=== PATIENT | male | born 1995 | race Two or more races ===

== ENCOUNTER 2017-10-04 00:12 | Inpatient (IN) | payer OTHER ==
[~2017-10-04] VITALS: Ht 177.8 cm; Wt 75.7 kg
[2017-10-04] VITALS (8 sets, daily range): BP systolic 120–165; BP diastolic 65–100
[2017-10-04] MEDS ORDERED: LORazepam 0.5mg tab ORAL ONE (00:45)
[2017-10-04 01:03] LABS: BASOPHILS % (AUTO) 1.1 % (0.0-2.0); EOSINOPHILS % (AUTO) 5.8 % (0.0-3.0); HEMATOCRIT 47.8 % (42.0-52.0); HEMOGLOBIN 17.2 G/DL (14.2-18.0); LYMPHOCYTES % (AUTO) 38.2 % (20.0-45.0); MEAN CORPUSCULAR VOLUME 89 FL (80-99); MONOCYTES % (AUTO) 8.7 % (1.0-10.0); NEUTROPHILS % (AUTO) 46.2 % (45.0-75.0); PLATELET COUNT 348 K/UL (150-450); RED BLOOD COUNT 5.39 M/UL (4.70-6.10); RED CELL DISTRIBUTION WIDTH 10.2 % (11.6-14.8)
[2017-10-04 01:16] LABS: ANION GAP 5 mmol/L (5-15); BLOOD UREA NITROGEN 16 mg/dL (7-18); CALCIUM 9.3 MG/DL (8.5-10.1); CARBON DIOXIDE 31 MMOL/L (21-32); CHLORIDE 101 MMOL/L (98-107); CREATININE 1.1 MG/DL (0.55-1.30); POTASSIUM 3.5 MMOL/L (3.5-5.1); SODIUM 137 MMOL/L (136-145)
[2017-10-04 01:30] LABS: ALANINE AMINOTRANSFERASE 24 U/L (12-78); ALBUMIN 4.1 G/DL (3.4-5.0); ALBUMIN/GLOBULIN RATIO 1.2 (1.0-2.7); ALKALINE PHOSPHATASE 81 U/L (46-116); ASPARTATE AMINO TRANSFERASE 18 U/L (15-37); BILIRUBIN,TOTAL 0.8 MG/DL (0.2-1.0); CREATINE KINASE 122 U/L (26-308)
--- NOTE | 2017-10-04 02:42 | Emergency Room Report ---
History of Present Illness General Chief Complaint: Dyspnea/Respdistress Source: Patient Present Illness HPI 22YOM with acute onset "weird sensation" in chest described as shortness of breath and "irregular heart beat" that occurred while watching [place] in movie theatre. Symptoms worse lying flat, improved leaning forward Recent URI and sore throat/strep treated with Abx last month Denies recent fever/chills Never had this before. No recent travel Family history of CVA No fam hx of PE Denies ETOH, smoking, drug use Denies history of HTN Very fit, active Allergies: Coded Allergies: No Known Allergies (Unverified , 10/04/17) Patient History Past Medical History: none Past Surgical History: none Pertinent Family History: none Social History: Denies: smoking, alcohol use, drug use Immunizations: UTD Reviewed Nursing Documentation: PMH: Agreed, PSxH: Agreed Review of Systems All Other Systems: negative except mentioned in HPI Physical Exam Vital Signs Date Time Temp Pulse Resp B/P (MAP) Pulse Ox O2 Delivery O2 Flow Rate FiO2 10/04/17 00:14 98.4 94 18 165/100 99 Room Air 98.4 Sp02 EP Interpretation: reviewed, normal General Appearance: normal inspection, well appearing, no apparent distress, alert, GCS 15, non-toxic Head: normocephalic, atraumatic Eyes: bilateral eye PERRL, bilateral eye EOMI ENT: normal ENT inspection, hearing grossly normal, normal pharynx, no angioedema, normal voice, TMs + canals normal, uvula midline, moist mucus membranes Neck: normal inspection, full range of motion, supple, thyroid normal, no meningismus, no bony tend Respiratory: normal inspection, lungs clear, normal breath sounds, no rhonchi, no respiratory distress, no retraction, no accessory muscle use, no wheezing, speaking full sentences Cardiovascular #1: regular rate, rhythm, no edema, no JVD, normal capillary refill, other - No friction rub Gastrointestinal: normal inspection, normal bowel sounds, non tender, soft, no mass, no peritonitis, non-distended, no guarding, no hernia, no pulsatile mass Genitourinary: no CVA tenderness Musculoskeletal: normal inspection, back normal, normal range of motion, no calf tenderness, pelvis stable, Bethany's Sign negative Neurologic: normal inspection, alert, oriented x3, responsive, chauffeur III-XII nml as tested, motor strength/tone normal, cerebellar normal, normal gait, speech normal Psychiatric: normal inspection, judgement/insight normal, mood/affect normal, no suicidal/homicidal ideation, no delusions Skin: normal inspection, normal color, no rash Lymphatic: normal inspection, no adenopathy Medical Decision Making Diagnostic Impression: Primary Impression: Palpitations ER Course VSS, afebrile ECG NSR, +LVH Trop 0 - unlikely ACS, myocarditis/pericarditis D-dimer WNL, unlikely PE. Strong concern for HOCM given patient's young age, athleticism, LVH on ECG No cardiac echo available at night Panel admit to Dr Acuña Endorsed to Dr Fish at 345am for tele admit EKG Diagnostic Results Rate: normal Rhythm: NSR ST Segments: no acute changes ASA given to the pt in ED: No Rhythm Strip Diag. Results EP Interpretation: yes Rate: 65 Rhythm: NSR, no PVC's, no ectopy Last Vital Signs Date Time Temp Pulse Resp B/P (MAP) Pulse Ox O2 Delivery O2 Flow Rate FiO2 10/04/17 01:36 77 18 132/80 98 Room Air 10/04/17 00:30 98.4 98.4 Status: improved Disposition: ADMITTED INPATIENT Condition: Serious Referrals: NOT CHOSEN IPA/,REFERRING (PCP) JULIAN YEE M.D. Oct 04, 2017 02:42
[2017-10-04] MEDS ORDERED: NKM (04:02)
[2017-10-04] MEDS ORDERED: Acetaminophen 650 MG SUPP RECTAL PRN ×2 (05:30)
[2017-10-04] MEDS ORDERED: Zolpidem 5mg tab ORAL PRN (05:30)
[2017-10-04] MEDS ORDERED: Miralax 17gm pkt ORAL PRN (05:30)
[2017-10-04] MEDS ORDERED: Albuterol/Ipratropium 3ml neb HHN PRN (05:30)
[2017-10-04] MEDS: Heparin 5000 units/ml inj SUBQ SCH ×2 (10:04→20:34)
--- NOTE | 2017-10-04 10:19 | History and Physical ---
History of Present Illness General Date patient seen: Oct 04, 2017 Time patient seen: 10:19 Reason for Hospitalization: Dyspnea/Respdistress Present Illness HPI 22y/o male with no sig pmh who presents with SOB and palpitations. Pt states adriana weight sensation in his chest and SOB while watching a movie in a theater. He was never had this before. His symptoms quickly resolved. Pt then awoke in AM w/ palpitations. Denies f/c, n/v, d/c, chest pain, abd pain, leg swelling, orthopnea, PND. Allergies: Coded Allergies: MOLD (Verified Allergy, Mild, 10/04/17) Uncoded Allergies: pollen (Allergy, Intermediate, 10/04/17) Medication History Scheduled No Known Medications* (NKM - No Known Medications*), 0 ., (Reported) Patient History History Provided By: Patient Healthcare decision maker Resuscitation status Full Code Advanced Directive on File No Past Medical/Surgical History Past Medical/Surgical History: (1) No significant past medical history (2) No significant past surgical history Family History Family History: Patient reports no known family medical history. Social History Social History: (1) No significant social history Review of Systems Constitutional: Reports: no symptoms Eye: Reports: no symptoms ENT: Reports: no symptoms Respiratory: Reports: shortness of breath Cardiovascular: Reports: palpitations Gastrointestinal: Reports: no symptoms Genitourinary: Reports: no symptoms Musculoskeletal: Reports: no symptoms Skin: Reports: no symptoms Psychiatric: Reports: no symptoms Neurological: Reports: no symptoms Endocrine: Reports: no symptoms Hematologic/Lymphatic: Reports: no symptoms All Other Systems: negative except mentioned in HPI Physical Exam Last 24 Hour Vital Signs Date Time Temp Pulse Resp B/P (MAP) Pulse Ox O2 Delivery O2 Flow Rate FiO2 10/04/17 08:00 97.7 66 18 120/65 98 Room Air 10/04/17 04:30 97.0 73 22 125/76 99 Room Air 10/04/17 04:30 98.4 73 22 125/76 98 Room Air 98.4 10/04/17 03:45 73 22 125/76 98 Room Air 10/04/17 01:36 77 18 132/80 98 Room Air 10/04/17 00:30 94 18 Room Air 10/04/17 00:30 98.4 94 18 165/100 99 Room Air 98.4 10/04/17 00:14 98.4 94 18 165/100 99 Room Air 98.4 Intake and Output 10/03/17 10/04/17 19:00 07:00 Intake Total 240 ml Balance 240 ml Intake Oral 240 ml # Voids 1 Laboratory Tests Test 10/04/17 00:12 10/04/17 00:50 10/04/17 02:22 Urine Opiates Screen Negative (NEGATIVE) Urine Barbiturates Screen Negative (NEGATIVE) Phencyclidine (PCP) Screen Negative (NEGATIVE) Urine Amphetamines Screen Negative (NEGATIVE) Urine Benzodiazepines Screen Negative (NEGATIVE) Urine Cocaine Screen Negative (NEGATIVE) Urine Marijuana (THC) Screen Negative (NEGATIVE) White Blood Count 11.0 K/UL (4.8-10.8) H Red Blood Count 5.39 M/UL (4.70-6.10) Hemoglobin 17.2 G/DL (14.2-18.0) Hematocrit 47.8 % (42.0-52.0) Mean Corpuscular Volume 89 FL (80-99) Mean Corpuscular Hemoglobin 31.8 PG (27.0-31.0) H Mean Corpuscular Hemoglobin Concent 35.9 G/DL (32.0-36.0) Red Cell Distribution Width 10.2 % (11.6-14.8) L Platelet Count 348 K/UL (150-450) Mean Platelet Volume 6.4 FL (6.5-10.1) L Neutrophils (%) (Auto) 46.2 % (45.0-75.0) Lymphocytes (%) (Auto) 38.2 % (20.0-45.0) Monocytes (%) (Auto) 8.7 % (1.0-10.0) Eosinophils (%) (Auto) 5.8 % (0.0-3.0) H Basophils (%) (Auto) 1.1 % (0.0-2.0) Sodium Level 137 MMOL/L (136-145) Potassium Level 3.5 MMOL/L (3.5-5.1) Chloride Level 101 MMOL/L (98-107) Carbon Dioxide Level 31 MMOL/L (21-32) Anion Gap 5 mmol/L (5-15) Blood Urea Nitrogen 16 mg/dL (7-18) Creatinine 1.1 MG/DL (0.55-1.30) Estimat Glomerular Filtration Rate > 60 mL/min (>60) Glucose Level 123 MG/DL (74-106) H Calcium Level 9.3 MG/DL (8.5-10.1) Total Bilirubin 0.8 MG/DL (0.2-1.0) Aspartate Amino Transf (AST/SGOT) 18 U/L (15-37) Alanine Aminotransferase (ALT/SGPT) 24 U/L (12-78) Alkaline Phosphatase 81 U/L (46-116) Total Creatine Kinase 122 U/L (26-308) Creatine Kinase MB 1.0 NG/ML (0.0-3.6) Creatine Kinase MB Relative Index 0.8 Troponin I 0.000 ng/mL (0.000-0.056) Total Protein 7.6 G/DL (6.4-8.2) Albumin 4.1 G/DL (3.4-5.0) Globulin 3.5 g/dL Albumin/Globulin Ratio 1.2 (1.0-2.7) Digoxin Level < 0.2 NG/ML (0.5-2.0) L D-Dimer 0.19 mg/L FEU (0.00-0.49) Height (Feet): 5 Height (Inches): 10.00 Weight (Pounds): 167 Medications Current Medications Medications (Trade) Dose Ordered Sig/Shanique Route PRN Reason Start Time Stop Time Status Last Admin Dose Admin Acetaminophen (Tylenol) 650 mg Q4H PRN ORAL Mild Pain (Pain Scale 1-3) 10/04/17 05:30 11/03/17 05:29 Acetaminophen (Tylenol) 650 mg Q4H PRN ORAL fever 10/04/17 05:30 11/03/17 05:29 Acetaminophen (Tylenol) 650 mg Q4H PRN RECTAL Mild Pain (Pain Scale 1-3) 10/04/17 05:30 11/03/17 05:29 Acetaminophen (Tylenol) 650 mg Q4H PRN RECTAL fever 10/04/17 05:30 11/03/17 05:29 Albuterol/ Ipratropium (Albuterol/ Ipratropium) 3 ml Q4H PRN HHN Shortness of Breath 10/04/17 05:30 10/09/17 05:29 Bisacodyl (Dulcolax) 10 mg DAILYPRN PRN RECTAL Constipation 10/04/17 05:30 11/03/17 05:29 Dextrose (Dextrose 50%) STAT PRN IV Hypoglycemia 10/04/17 05:30 11/03/17 05:29 Diphenhydramine HCl (Benadryl) 25 mg Q6H PRN ORAL Itching/Pruritis 10/04/17 05:30 11/03/17 05:29 Heparin Sodium (Porcine) (Heparin 5000 units/ml) 5,000 units EVERY 12 HOURS SUBQ 10/04/17 09:00 11/03/17 08:59 10/04/17 10:04 Ondansetron HCl (Zofran) 4 mg Q6H PRN IVP Nausea & Vomiting 10/04/17 05:30 11/03/17 05:29 Polyethylene Glycol (Miralax) 17 gm DAILYPRN PRN ORAL Constipation 10/04/17 05:30 11/03/17 05:29 Zolpidem Tartrate (Ambien) 5 mg DAILYPRN PRN ORAL Insomnia 10/04/17 05:30 10/11/17 05:29 Assessment/Plan Problem List: (1) Palpitations ICD Codes: R00.2 - Palpitations SNOMED: 90703478 (2) SOB (shortness of breath) ICD Codes: R06.02 - Shortness of breath SNOMED: 973700843 Status: stable Assessment/Plan Admit to tele Trend trop/EKG Check TTE Cardiology consulted Check TSH, lipid panel Pain control, supportive care, bowel regimen DVT ppx w/ SCDs, ambulation FULL CODE D/w pt, RN, SW/CM, cardiology regarding mgmt and dispo Abe Dunbar M.D. Oct 04, 2017 10:19
--- NOTE | 2017-10-04 10:22 | Diagnostic Imaging Report ---
Indication: Shortness of breath Technique: One view of the chest Comparison: none Findings: Lungs are hyperinflated. Lungs and pleural spaces otherwise clear. Heart size is normal. Impression: Hyperinflation, may indicate asthma. No acute infiltrate
--- NOTE | 2017-10-04 13:13 | Cardiac Electrophysiology PN ---
Subjective Subjective [id number] Objective Last 24 Hour Vital Signs Date Time Temp Pulse Resp B/P (MAP) Pulse Ox O2 Delivery O2 Flow Rate FiO2 10/04/17 08:45 71 18 Room Air 10/04/17 08:00 63 10/04/17 08:00 97.7 66 18 120/65 98 Room Air 10/04/17 04:30 97.0 73 22 125/76 99 Room Air 10/04/17 04:30 98.4 73 22 125/76 98 Room Air 98.4 10/04/17 03:45 73 22 125/76 98 Room Air 10/04/17 01:36 77 18 132/80 98 Room Air 10/04/17 00:30 94 18 Room Air 10/04/17 00:30 98.4 94 18 165/100 99 Room Air 98.4 10/04/17 00:14 98.4 94 18 165/100 99 Room Air 98.4 Intake and Output 10/03/17 10/04/17 19:00 07:00 Intake Total 240 ml Balance 240 ml Intake Oral 240 ml # Voids 1 Laboratory Tests Test 10/04/17 00:12 10/04/17 00:50 10/04/17 02:22 Urine Opiates Screen Negative (NEGATIVE) Urine Barbiturates Screen Negative (NEGATIVE) Phencyclidine (PCP) Screen Negative (NEGATIVE) Urine Amphetamines Screen Negative (NEGATIVE) Urine Benzodiazepines Screen Negative (NEGATIVE) Urine Cocaine Screen Negative (NEGATIVE) Urine Marijuana (THC) Screen Negative (NEGATIVE) White Blood Count 11.0 K/UL (4.8-10.8) H Red Blood Count 5.39 M/UL (4.70-6.10) Hemoglobin 17.2 G/DL (14.2-18.0) Hematocrit 47.8 % (42.0-52.0) Mean Corpuscular Volume 89 FL (80-99) Mean Corpuscular Hemoglobin 31.8 PG (27.0-31.0) H Mean Corpuscular Hemoglobin Concent 35.9 G/DL (32.0-36.0) Red Cell Distribution Width 10.2 % (11.6-14.8) L Platelet Count 348 K/UL (150-450) Mean Platelet Volume 6.4 FL (6.5-10.1) L Neutrophils (%) (Auto) 46.2 % (45.0-75.0) Lymphocytes (%) (Auto) 38.2 % (20.0-45.0) Monocytes (%) (Auto) 8.7 % (1.0-10.0) Eosinophils (%) (Auto) 5.8 % (0.0-3.0) H Basophils (%) (Auto) 1.1 % (0.0-2.0) Sodium Level 137 MMOL/L (136-145) Potassium Level 3.5 MMOL/L (3.5-5.1) Chloride Level 101 MMOL/L (98-107) Carbon Dioxide Level 31 MMOL/L (21-32) Anion Gap 5 mmol/L (5-15) Blood Urea Nitrogen 16 mg/dL (7-18) Creatinine 1.1 MG/DL (0.55-1.30) Estimat Glomerular Filtration Rate > 60 mL/min (>60) Glucose Level 123 MG/DL (74-106) H Calcium Level 9.3 MG/DL (8.5-10.1) Total Bilirubin 0.8 MG/DL (0.2-1.0) Aspartate Amino Transf (AST/SGOT) 18 U/L (15-37) Alanine Aminotransferase (ALT/SGPT) 24 U/L (12-78) Alkaline Phosphatase 81 U/L (46-116) Total Creatine Kinase 122 U/L (26-308) Creatine Kinase MB 1.0 NG/ML (0.0-3.6) Creatine Kinase MB Relative Index 0.8 Troponin I 0.000 ng/mL (0.000-0.056) Total Protein 7.6 G/DL (6.4-8.2) Albumin 4.1 G/DL (3.4-5.0) Globulin 3.5 g/dL Albumin/Globulin Ratio 1.2 (1.0-2.7) Digoxin Level < 0.2 NG/ML (0.5-2.0) L D-Dimer 0.19 mg/L FEU (0.00-0.49) DIANN HARDING Oct 04, 2017 13:13
[2017-10-04 15:48] LABS: CHOLESTEROL 141 MG/DL (< 200); HDL CHOLESTEROL 56 MG/DL (40-60); TRIGLYCERIDES 73 MG/DL (30-150)
--- NOTE | 2017-10-04 17:30 | Consultation ---
DATE OF CONSULTATION: 10/04/2017 CARDIOLOGY CONSULTATION CONSULTING PHYSICIAN: Santo Garvey M.D. REASON FOR CONSULTATION: Palpitation and chest discomfort. HISTORY OF PRESENT ILLNESS: The patient is a 22-year-old athletic gentleman with no past medical history, on no medication, felt a weird sensation in his chest, had shortness of breath and irregular heartbeat while he was watching [place] in a movie theater. The episode subsequently resolved, however, the rapid heartbeat and palpitations woke him up in the morning. The patient has history of URI and sore throat that was treated with antibiotic last month. The patient has no prior history of atrial fibrillation or WPW (heart failure). The patient was admitted and EKG was suggestive of left ventricular hypertrophy. So, a Cardiology consultation was obtained. PAST MEDICAL HISTORY: Negative. FAMILY HISTORY: Noncontributory and is negative for aortic dissection, WPW, atrial fibrillation, or sudden cardiac . SOCIAL HISTORY: Lives at home. Does not smoke or drink alcohol or use any drugs. REVIEW OF SYSTEMS: Review of systems was thoroughly performed and was negative other than what was mentioned in the history of present illness. PHYSICAL EXAMINATION: VITAL SIGNS: Blood pressure of 120/65 and on arrival in the ER was 165/100, pulse 71, respirations 18, and he is afebrile. HEAD AND NECK: No JVD or carotid bruits. LUNGS: Clear. CARDIOVASCULAR: Regular S1 and S2 with no gallop or murmur. ABDOMEN: Soft. EXTREMITIES: No pitting edema. LABORATORY AND DIAGNOSTIC DATA: White count of 11, hemoglobin 17.2, hematocrit of 47.8, and platelet count of 348. Sodium 137, potassium 3.5, BUN of 16, creatinine 1.1 and glucose of 122. Troponin is negative. D-dimer is 0.19. His urine toxicology screen is negative. ASSESSMENT AND PLAN: 1. Sudden onset of palpitation in a patient with no prior cardiac history. The patient's EKG showed moderate voltage criteria for left ventricular hypertrophy, however, his echocardiogram showed normal left ventricular systolic function, ejection fraction 55% with only mild left ventricular hypertrophy with no evidence of significant valvular pathology. This completely rule out myocardial infarction protocol, even though it is high unlikely. Therefore, we will schedule the patient for treadmill stress test for further evaluation. 2. Sudden onset of palpitation and risk, could be due to supraventricular tachycardia or atrial fibrillation or ventricular tachycardia. We will watch the patient on telemetry. We will have to schedule the patient for a treadmill stress test to see whether exercise can bring it up. Otherwise, the patient may need an event monitor as an outpatient. 3. Mild left ventricular hypertrophy based on EKG and echocardiogram. Thank you very much, Dr. Acuña, for allowing me to participate in the care of this patient. Please do not hesitate to contact me for any questions regarding my evaluation. Santo Garvey M.D. DR: CORRINE JOB#: [id number] CC:
[2017-10-05] VITALS: BP 119/68
[2017-10-05 04:00] VITALS: BP 118/60
[2017-10-05 08:00] VITALS: BP 118/78
--- NOTE | 2017-10-05 08:30 | Cardiology Report ---
APPROVED REPORT EXAM: Two-dimensional and M-mode echocardiogram with Doppler and color Doppler. INDICATION Shortness of breath M-Mode DIMENSIONS IVSd1.3 (0.7-1.1cm)Left Atrium (MM)2.2 (1.6-4.0cm) LVDd4.2 (3.5-5.6cm)Aortic Root3.1 (2.0-3.7cm) PWd1.1 (0.7-1.1cm)Aortic Cusp Exc.1.5 (1.5-2.0cm) LVDs2.9 (2.5-4.0cm) PWs1.8 cm Normal left ventricular chamber size, systolic function and wall motion. Left ventricular ejection fraction estimated to be 55 %. Mild left ventricular hypertrophy. No evidence of pericardial effusion. All other cardiac chamber sizes are within normal limits. Normal appearing aortic, mitral, pulmonic and tricuspid valves. Mild mitral annulus and aortic root calcification. IVC is normal in size with physiologic collapse. A color flow and spectral Doppler study was performed and revealed: No aortic regurgitation. No mitral regurgitation. Mitral inflow indicates normal left ventricular diastolic function. Mild tricuspid regurgitation. Tricuspid systolic velocities suggests peak right ventricular systolic pressure of 47 mmHg, consistent with moderate pulmonary hypertension. Mild pulmonic regurgitation present.
--- NOTE | 2017-10-05 08:33 | Cardiology Report ---
APPROVED REPORT EKG Measurement Heart [id number] IL [id number] Normal sinus rhythm with sinus arrhythmia Moderate voltage criteria for LVH, may be normal variant Borderline ECG
[2017-10-05 08:49] LABS: BASOPHILS % (AUTO) 1.2 % (0.0-2.0); EOSINOPHILS % (AUTO) 6.4 % (0.0-3.0); HEMOGLOBIN 17.6 G/DL (14.2-18.0); LYMPHOCYTES % (AUTO) 32.7 % (20.0-45.0); MEAN CORPUSCULAR VOLUME 90 FL (80-99); MONOCYTES % (AUTO) 7.7 % (1.0-10.0); NEUTROPHILS % (AUTO) 52.1 % (45.0-75.0); PLATELET COUNT 337 K/UL (150-450); RED BLOOD COUNT 5.46 M/UL (4.70-6.10); RED CELL DISTRIBUTION WIDTH 10.5 % (11.6-14.8); WHITE BLOOD COUNT 8.3 K/UL (4.8-10.8)
[2017-10-05 09:20] LABS: ANION GAP 5 mmol/L (5-15); BLOOD UREA NITROGEN 13 mg/dL (7-18); CALCIUM 9.7 MG/DL (8.5-10.1); CARBON DIOXIDE 30 MMOL/L (21-32); CHLORIDE 102 MMOL/L (98-107); SODIUM 137 MMOL/L (136-145)
[2017-10-05] MEDS: Heparin 5000 units/ml inj SUBQ SCH (09:27)
[2017-10-05 12:00] VITALS: BP 127/59
[2017-10-05 16:00] VITALS: BP 130/79
--- NOTE | 2017-10-05 16:03 | Cardiac Electrophysiology PN ---
Assessment/Plan Assessment/Plan 1. Sudden onset of palpitation in a patient with no prior cardiac history. The patient's EKG showed moderate voltage criteria for left ventricular hypertrophy, however, his echocardiogram showed normal left ventricular systolic function, ejection fraction 55% with only mild left ventricular hypertrophy with no evidence of significant valvular pathology. Ruled out myocardial infarction . Had treadmill stress test today. No arrhythmias induced. Nuclear images pending. 2. Sudden onset of palpitation and risk, could be due to supraventricular tachycardia or atrial fibrillation or ventricular tachycardia. We will watch the patient on telemetry. Event monitor as an outpatient. 3. Mild left ventricular hypertrophy based on EKG and echocardiogram. SVETA rN Subjective Subjective No chest pain or SOB. Had nuclear treadmill stress test today. No arrhythmias on tele. Objective Last 24 Hour Vital Signs Date Time Temp Pulse Resp B/P (MAP) Pulse Ox O2 Delivery O2 Flow Rate FiO2 10/05/17 12:00 98.1 66 18 127/59 97 Room Air 10/05/17 08:00 97.7 96 18 118/78 96 Room Air 10/05/17 08:00 63 10/05/17 07:23 104 18 Room Air 21 10/05/17 04:00 57 10/05/17 04:00 97.7 59 18 118/60 97 Room Air 10/05/17 00:00 64 10/05/17 00:00 97.7 61 20 119/68 99 Room Air 10/04/17 20:20 77 18 Room Air 10/04/17 20:00 98.4 69 20 126/66 97 Room Air 10/04/17 20:00 67 Intake and Output 10/04/17 10/05/17 19:00 07:00 Intake Total 480 ml 800 ml Balance 480 ml 800 ml Intake Oral 480 ml 800 ml # Voids 3 Laboratory Tests Test 10/05/17 08:04 White Blood Count 8.3 K/UL (4.8-10.8) Red Blood Count 5.46 M/UL (4.70-6.10) Hemoglobin 17.6 G/DL (14.2-18.0) Hematocrit 49.0 % (42.0-52.0) Mean Corpuscular Volume 90 FL (80-99) Mean Corpuscular Hemoglobin 32.2 PG (27.0-31.0) H Mean Corpuscular Hemoglobin Concent 35.9 G/DL (32.0-36.0) Red Cell Distribution Width 10.5 % (11.6-14.8) L Platelet Count 337 K/UL (150-450) Mean Platelet Volume 6.1 FL (6.5-10.1) L Neutrophils (%) (Auto) 52.1 % (45.0-75.0) Lymphocytes (%) (Auto) 32.7 % (20.0-45.0) Monocytes (%) (Auto) 7.7 % (1.0-10.0) Eosinophils (%) (Auto) 6.4 % (0.0-3.0) H Basophils (%) (Auto) 1.2 % (0.0-2.0) Sodium Level 137 MMOL/L (136-145) Potassium Level 4.0 MMOL/L (3.5-5.1) Chloride Level 102 MMOL/L (98-107) Carbon Dioxide Level 30 MMOL/L (21-32) Anion Gap 5 mmol/L (5-15) Blood Urea Nitrogen 13 mg/dL (7-18) Creatinine 1.0 MG/DL (0.55-1.30) Estimat Glomerular Filtration Rate > 60 mL/min (>60) Glucose Level 111 MG/DL (74-106) H Calcium Level 9.7 MG/DL (8.5-10.1) Magnesium Level 1.8 MG/DL (1.8-2.4) Pro-B-Type Natriuretic Peptide 18 pg/mL (0-125) Thyroid Stimulating Hormone (TSH) 0.754 uiU/mL (0.358-3.740) Free Thyroxine 1.17 NG/DL (0.76-1.46) Objective HEAD AND NECK: No JVD or carotid bruits. LUNGS: Clear. CARDIOVASCULAR: Regular S1 and S2 with no gallop or murmur. ABDOMEN: Soft. EXTREMITIES: No pitting edema. DIANN HARDING Oct 05, 2017 16:03
--- NOTE | 2017-10-05 16:20 | Diagnostic Imaging Report ---
Indications: 22-year-old male with chest pain Technique: Single day single isotope protocol utilized. Initially, resting images obtained using IV administration and millicuries 99M technetium Myoview. Subsequently, patient underwent treadmill stress testing. See cardiology report for details. During exercise, IV administration 30.2 mCi 99 M technetium Myoview. SPECT and planar images obtained. SPECT images gated to 8 phases of the cardiac cycle were also obtained, and reformatted into cine images for evaluation of ejection fraction. Comparison: none Findings: Per cardiology report, patient experienced one second of chest pain. Per cardiology report, resting EKG demonstrates normal sinus rhythm. Patient achieved a peak heart rate of 176 bpm, in excess of the targeted heart rate of 167 bpm. Imaging demonstrates an equivocal fixed perfusion defect in the anteroseptal wall near the apex, best appreciated on the short axis images. No reversible perfusion defects are demonstrated. Normal left ventricular chamber size. Calculated post stress ejection fraction 71%. No evidence of focal wall motion abnormality Impression: Nonischemic clinical response to exercise stress, per cardiology report Nonischemic electrocardiographic response to exercise stress, per cardiology report Very questionable fixed perfusion defect in the anteroseptal wall near the apex, most likely artifactual but small infarct not completely excludable. Negative for ischemia Calculated post stress ejection fraction greater than 70%
--- NOTE | 2017-10-05 17:20 | Discharge Instructions ---
Discharge Instructions Discharge Instructions Follow up with: Cardiology Dr. Garvey in 1-2 weeks - Call MD/Return to Hospital if: chest pain, SOB, fevers Diet: regular Activity: resume normal activities Special Instructions Follow-up with primary care doctor and cardiology Dr. Garvey ( ) For Congestive Heart Failure Reminder Report to your physician any weight gain of 5 pounds or more in one week. Abe Dunbar M.D. Oct 05, 2017 17:20
--- NOTE | 2017-10-06 16:23 | Discharge Summary ---
Discharge Summary Hospital Course Date of Admission Oct 04, 2017 at 01:07 Date of Discharge Oct 05, 2017 at 18:57 Admitting Diagnosis SOB, palpitations Reason for Hospitalization: R/o ACS, cardiomyopathy HPI 22y/o male with no sig pmh who presents with SOB and palpitations. Pt states adriana weight sensation in his chest and SOB while watching a movie in a theater. He was never had this before. His symptoms quickly resolved. Pt then awoke in AM w/ palpitations. Denies f/c, n/v, d/c, chest pain, abd pain, leg swelling, orthopnea, PND. Consultations Cardiology Hospital Course Pt was admitted to [facility] and ruled out for ACS with serial trop/EKG. Pt was seen by cardiology. EKG showed e/o LVH. TTE showed normal EF, no valvular abnormalities, mild LVH. Pt underwent cardiac stress test which was unremarkable. Pt was cleared for discharge by cardiology. Pt to follow-up with cardiology as outpatient w/ plan for an event monitor. Discharge physical exam General: alert, cooperative, no distress, appears stated age Head: normocephalic, without obvious abnormality, atraumatic Eyes: conjunctivae/corneas clear. PERRL, EOM's intact Throat: lips, mucosa, and tongue normal. MMM Neck: supple, symmetrical, trachea midline, and no JVD Lungs: clear to auscultation bilaterally Heart: regular rate and rhythm, S1, S2 normal, no murmur, click, rub or gallop Abdomen: soft, non-tender, non-distended, bowel sounds normal; no masses or organomegaly Extremities: extremities normal, atraumatic, no cyanosis or edema Pulses: 2+ and symmetric Skin: skin color, texture, turgor normal; no rashes or lesions Neurologic: grossly normal, no focal deficits Discharge Medications Continued Medications: No Known Medications* (NKM - No Known Medications*) . 0 ., 0 Refills Discharge Condition Upon Discharge: stable Discharge Disposition Patient was discharged to Home (01) Discharge Diagnoses: (1) LVH (left ventricular hypertrophy) (2) SOB (shortness of breath) (3) Palpitations Discharge Instructions Discharge Instructions Follow up with: Cardiology Dr. Garvey in 1-2 weeks - Call MD/Return to Hospital if: chest pain, SOB, fevers Activity: resume normal activities Abe Dunbar M.D. Oct 06, 2017 16:23
== END 2017-10-05 18:57 | disposition home or self-care (01) | DRG 310 ==
LOC: EMR 00:34 → 2E 01:07 → EDBEDREQ 02:32 → SDSOVERFLO 10:39 → 2E 10:42
DX: R00.2 Palpitations (principal); I51.7 Cardiomegaly; R07.9 Chest pain, unspecified
CPT/HCPCS: 36415; 71045; 78452; 80048; 80053; 80061; 80162; 80307; 82550; 82553; 83036; 83735; 83880; 84439; 84443; 84484; 85025; 85379; 93005; 93017; 93306; 94664; 99285